=== PATIENT | female | born 1975 | race American Indian/Alaskan Native ===

== ENCOUNTER 2016-10-26 08:08 | Outpatient (CLI) | payer BC ==
[2016-10-26] MEDS ORDERED: XYLOCAINE TOPICAL 4% TP ONE ×2 (08:38→09:07)
== END 2016-10-26 08:09 | disposition home or self-care (01) ==
LOC: WOUND 08:08
PROVIDERS: ATTEND Internal Medicine
DX: L97.812 Non-pressure chronic ulcer of other part of right lower leg with fat layer exposed (principal); L30.8 Other specified dermatitis; I10 Essential (primary) hypertension; F17.200 Nicotine dependence, unspecified, uncomplicated
CPT/HCPCS: 87075; 87116; 97597; G0463

== ENCOUNTER 2016-11-03 13:23 | Outpatient (CLI) | payer BC ==
[2016-11-03] MEDS ORDERED: XYLOCAINE TOPICAL 4% TP ONE ×2 (13:38→13:59)
== END 2016-11-03 13:24 | disposition home or self-care (01) ==
LOC: WOUND 13:23
PROVIDERS: ATTEND Surgery
DX: L97.812 Non-pressure chronic ulcer of other part of right lower leg with fat layer exposed (principal); I10 Essential (primary) hypertension; F17.200 Nicotine dependence, unspecified, uncomplicated
CPT/HCPCS: 99214; G0463

== ENCOUNTER 2016-11-16 12:55 | Outpatient (CLI) | payer BC ==
[2016-11-16] MEDS ORDERED: XYLOCAINE TOPICAL 4% TP ONE (13:09)
== END 2016-11-16 12:56 | disposition home or self-care (01) ==
LOC: WOUND 12:55
PROVIDERS: ATTEND Internal Medicine
DX: L97.811 Non-pressure chronic ulcer of other part of right lower leg limited to breakdown of skin (principal); I10 Essential (primary) hypertension; L30.8 Other specified dermatitis; Z88.1 Allergy status to other antibiotic agents; F17.210 Nicotine dependence, cigarettes, uncomplicated
CPT/HCPCS: 99213; G0463

== ENCOUNTER 2016-11-17 21:44 | Emergency (ER) | payer BC | END 2016-11-17 23:50 | disposition left against medical advice (07) | LOC: ED 21:44 | DX: L03.90 Cellulitis, unspecified (principal); Z53.21 Procedure and treatment not carried out due to patient leaving prior to being seen by health care provider ==

== ENCOUNTER 2016-11-23 13:07 | Outpatient (CLI) | payer BC ==
[2016-11-23] MEDS ORDERED: XYLOCAINE TOPICAL 4% TP ONE ×2 (13:22→13:31)
== END 2016-11-23 13:08 | disposition home or self-care (01) ==
LOC: WOUND 13:07
PROVIDERS: ATTEND Internal Medicine
DX: L97.812 Non-pressure chronic ulcer of other part of right lower leg with fat layer exposed (principal); I10 Essential (primary) hypertension; L30.8 Other specified dermatitis; F17.200 Nicotine dependence, unspecified, uncomplicated
CPT/HCPCS: 99214; G0463